=== PATIENT | female | born 2000 | race Caucasian/White ===

== ENCOUNTER 2023-12-10 18:05 | Outpatient (CLI) | payer OTHER, MEDICAID ==
--- NOTE | 2023-12-11 11:09 | XRAY Report ---
PROCEDURE: Ankle 3+V LT INDICATIONS: SPRIAN OF OTHER LIGAMENT OF LEFT ANKLE TECHNIQUE: 3 views of the ankle were acquired. COMPARISON: None. FINDINGS: Bones: No fractures or dislocations. Ankle mortise is normally aligned. No suspicious bony lesions . There is an ossicle superior to the navicula, probably an accessory ossicle. A differential diagnos is is body of remote injury. Soft tissues: No tibiotalar joint effusion. Achilles tendon appears normal. IMPRESSION: No acute bony abnormality. If there is clinical suspicion for tendon or ligamentous injuries, conside r MRI for follow-up. Reviewed by: Tori Victoria MD on 12/11/2023 11:07 AM [facility] Approved by: Tori Victoria MD on 12/11/2023 11:07 AM [facility] Station ID: [id number]
== END 2023-12-10 18:06 | disposition home or self-care (01) ==
LOC: DI 18:05
PROVIDERS: ATTEND Registered Nurse
DX: S93.492A Sprain of other ligament of left ankle, initial encounter (principal)

== ENCOUNTER 2023-12-17 13:27 | Outpatient (CLI) | payer OTHER, MEDICAID ==
--- NOTE | 2023-12-17 16:25 | XRAY Report ---
PROCEDURE: Ankle 3 View LT INDICATIONS: LEFT ANKLE PAIN TECHNIQUE: 3 views of the ankle were acquired. COMPARISON: 12/10/2023. FINDINGS: Bones: No fractures or dislocations. Ankle mortise is normally aligned. No suspicious bony lesions . Soft tissues: No tibiotalar joint effusion. Achilles tendon appears normal. IMPRESSION: No acute bony abnormality. If pain persists with conservative management, consider repeat x-ray in 10 -14 days or cross-sectional imaging. Reviewed by: Winston Blair MD on 12/17/2023 4:24 PM PST Approved by: Winston Blair MD on 12/17/2023 4:24 PM PST Station ID: [id number]
== END 2023-12-17 23:59 | disposition home or self-care (01) ==
LOC: DI.WOS 13:27
PROVIDERS: ATTEND Orthopaedic Surgery
DX: S93.492A Sprain of other ligament of left ankle, initial encounter (principal)